=== PATIENT | female | born 1975 | race Caucasian/White ===

== ENCOUNTER 2016-12-24 08:50 | Emergency (ER) | payer OTHER ==
[~2016-12-24] VITALS: Ht 165.1 cm; Wt 63.5 kg
--- NOTE | 2016-12-24 09:05 | NUR ---
PT TO ED ROOM 15. [id number]. ETOH INTOXICATED, NAUSE, Hx OF ETOH ABUSE. A/A/O. SIDE RAILS UP. HOB ELEVATED. CONNECTED TO MONITOR. SEEN AND EVALUATED BY ED PROVIDER.
--- NOTE | 2016-12-24 09:15 | NUR ---
ITINERANT TEACHER ASSISTANT AT BEDSIDE FOR BLOOD DRAW
[2016-12-24] MEDS ORDERED: ONDANSETRON HCL/PF 4 MG/2 ML VIAL ONE (09:24)
[2016-12-24 09:27] LABS: BASOPHILS % (AUTO) 0.3 % (0.0-2.0); EOSINOPHILS % (AUTO) 1.2 % (0.0-6.0); HEMATOCRIT 36 % (33-45); HEMOGLOBIN 12.4 g/dL (11.5-14.8); LYMPHOCYTES # (AUTO) 1.3 /CMM (0.8-4.8); LYMPHOCYTES % (AUTO) 37.4 % (20.0-44.0); MEAN CORPUSCULAR HEMOGLOBIN 33 PG (26.0-33.0); MEAN CORPUSCULAR HGB CONC 34 g/dl (31.0-36.0); MEAN CORPUSCULAR VOLUME 97 fL (82-100); MONOCYTES # (AUTO) 0.4 /CMM (0.1-1.30); MONOCYTES % (AUTO) 11.7 % (2.0-12.0); NEUTROPHILS # (AUTO) 1.7 /CMM (1.8-8.9); NEUTROPHILS % (AUTO) 49.4 % (43.0-81.0); PLATELET COUNT (AUTO) 72 /CMM (150-450); RDW COEFFICIENT OF VARIATION 17.4 (11.5-15.0); RED BLOOD CELL COUNT(AUTO) 3.73 MIL/uL (4.0-5.2); WHITE BLOOD COUNT (AUTO) 3.5 K/uL (4.3-11.0)
[2016-12-24] MEDS ORDERED: IV NS 0.9% 500 ML BAG IV ONE (09:30)
[2016-12-24] MEDS ORDERED: IV NS 0.9% 1,000 ML BAG IV ONE ×2 (09:30→12:00)
[2016-12-24] MEDS ORDERED: ONDANSETRON HCL/PF 4 MG/2 ML VIAL IV ONE (09:30)
[2016-12-24 09:38] LABS: CALCIUM, SERUM 9.1 mg/dL (8.5-10.1); POTASSIUM 3.1 mmol/L (3.5-5.1)
[2016-12-24 09:44] LABS: ALBUMIN 4.5 g/dL (3.4-5.0); BILIRUBIN,DIRECT 0.3 mg/dL (0.0-0.2); BILIRUBIN,TOTAL 0.9 mg/dL (0.2-1.0); TOTAL PROTEIN, SERUM 8.3 g/dL (6.4-8.2)
[2016-12-24 10:04] LABS: LYMPHOCYTES % (MANUAL) 33 % (16-48); MONOCYTES % (MANUAL) 5 % (0-11.0); NEUTROPHILS % (MANUAL) 62 (42-76)
[2016-12-24] MEDS ORDERED: POTASSIUM CHLORIDE 20 MEQ TAB.PRT.SR PO ONE ×2 (11:00→11:26)
--- NOTE | 2016-12-24 11:25 | NUR ---
PT RESTING QUIETLY WHEN ALONE BUT WHEN I ENTER THE ROOM PT STARTS SHAKING AND STATES "I THINK I'M GOING TO HAVE A SEIZURE. I NEED ATIVAN". MD NOTIFIED. ALL NEEDS ATTENDED TO.
[2016-12-24] MEDS ORDERED: IV SET PRIMARY 1 EA INFUS.SET MC ONE (11:50)
[2016-12-24] MEDS ORDERED: IV NS 0.9% 1,000 ML ONE (11:50)
[2016-12-24] MEDS ORDERED: LORAZEPAM INJ 2 MG/ML VIAL ONE ×2 (11:52→13:06)
[2016-12-24] MEDS ORDERED: LORAZEPAM INJ 2 MG/ML VIAL IVP ONE (12:00)
--- NOTE | 2016-12-24 13:45 | NUR ---
Patient discharged to home in stable condition. Written and verbal after care instructions given. Patient verbalizes understanding of instruction. IV removed. Catheter intact and site benign. Pressure and 4x4 applied to site. No bleeding noted. PROVIDED WITH RESOURCES FOR DETOX. PT VERBALIZES PLAN TO GO TO DETOX TODAY AT 1600. ASSISTED TO WAITING ROOM VIA WHEELCHAIR. PER PT, HER FRIENFD WILL PICK HER UP AT 1600.
[2016-12-24 13:47] VITALS: BP 142/96
== END 2016-12-24 13:50 | disposition home or self-care (01) ==
LOC: ER 08:51
DX: F10.239 Alcohol dependence with withdrawal, unspecified (principal); F10.229 Alcohol dependence with intoxication, unspecified; E87.6 Hypokalemia; F43.10 Post-traumatic stress disorder, unspecified
CPT/HCPCS: 36415; 80048-TC; 80076-TC; 85025-TC; A4606; J2060; J2405; J7030; Z7610